=== PATIENT | female | born 1970 | race Caucasian/White ===

== ENCOUNTER 2020-05-08 14:15 | Outpatient (REF) | payer OTHER, SELFPAY ==
[2020-05-10 15:07] LABS: H Pylori Breath Test NOT DETECTED (NOT DETECTED)
== END 2020-05-08 14:16 | disposition home or self-care (01) ==
LOC: HO.LNP 14:15
PROVIDERS: PCP Internal Medicine; Visit Provider Internal Medicine Gastroenterology
DX: A04.8 Other specified bacterial intestinal infections (principal)
CPT/HCPCS: 83013; 99211

== ENCOUNTER 2020-05-25 09:36 | Day surgery (SDC) | payer OTHER, SELFPAY ==
[2020-05-25 10:04] LABS: UPreg QC Valid YES; Urine Pregnancy NEGATIVE (NEGATIVE)
[2020-05-25 10:06] VITALS: BP 128/70; PULSE 73; RESP 16; TEMP 36.3; O2SAT 100; BMI 29.2
[2020-05-25] MEDS: Lactated Ringers 1,000 ML 50 ML IVCONT (10:17)
--- NOTE | 2020-05-25 10:17 | PC.NURSE ---
MD QUINTEROS STATED OK TO CANCEL NS ORDER
--- NOTE | 2020-05-25 10:23 | P.CONAN_ITS ---
[facility] Social History Social History Smoking Status: Never smoker Use of substances other than those prescribed or required for medical reasons: No Advance Directives: No Advance Directives Information Provided: Yes Recently lost weight without trying: No Meds Allergies Allergy/AdvReac Type Severity Reaction Status Date / Time ampicillin Allergy rash, red Verified 05/08/20 14:31 spots Exam Exam Date and Time: May 25, 2020 1023 Height,Weight and Vital Signs: Height 5 ft 3 in Weight 74.843 kg Last Vital Signs Temp 97.4 F 05/25/20 10:06 Pulse 73 05/25/20 10:06 Resp 16 05/25/20 10:06 BP 128/70 05/25/20 10:06 Pulse Ox 100 05/25/20 10:06 Pertinent Lab Results Pertinent Lab Results: Laboratory Tests 05/25/20 09:50 Urine Test NEGATIVE Airway Mallampati Class: II TM Dist: >3cm Loose/Missing/Broken Teeth: No Heart: RRR Lungs: CTA Assessment and Plan Assessment Anesthesia Assessment: Anesthesia Plan Discussed and Chart Reviewed Final Anesthetic Review NPO: Yes ASA Class: I Final Preanesthetic Review: Meds/Allgs Chart Reviewed, Consent Obtained/Reviewed and Anes Risks/Benef Reviewed Patient Risk: Low Procedure Risk: Intermediate Anesthetic Plan Anesthetic Plan: MAC: Disposition: Standard PACU
--- NOTE | 2020-05-25 11:05 | P.HPSUR_ITS ---
Pre-Procedural Eval Section B Chief Complaint: Choking Relevant Family History (Specify if Yes): No Relevant Social History: None Present Medications: see Short Stay Collaborative assessment (sinus issues) Medical History: Significant History History of Previous Operations: No relevant previous surgery Allergies: Allergies Allergy/AdvReac Type Severity Reaction Status Date / Time ampicillin Allergy rash, red Verified 05/08/20 14:31 spots Review of Systems Sugical H&P ROS: Negative: Constitution, Cardiovascular, Respiratory, Neurological, Psychiatric, Hem-Onc, Allergic/Immunologic, Gastrointestinal, Genitourinary, Musculoskeletal, Integumentary, Endocrine and Eyes/Ears/Nos e/Throat Exam Surgical H&P Exam: Normal: HEENT, Normal: Heart, Normal: Lungs, Normal: Extremities, Normal: Abdomen, Normal: Skin and Normal: Neurological Plan Diagnosis/Plan: Unchanged I have reviewed the history and physical and performed a pertinent physical examination on my patient. No changes have occurred unless specified.
--- NOTE | 2020-05-25 11:06 | PM.OP ---
Brief Operative Note Date of Service: 05/25/20 Pre-op diagnosis: choking, dysphagia Post-op diagnosis: same Procedure: Procedure Description: EGD FLEXIBLE TRANSORAL UPPER GASTROINTESTINAL ENDOSCOPY UPPER ENDOSCOPY Consent: Indications for the procedure and potential complications of bleeding, perforation, reaction to medications and missed diagnosis were discussed with the patient and informed consent was obtained. Instrument: Olympus GIF H 190 J mid size upper endoscope Monitoring: Vital signs and clinical assessment, continuous EKG monitoring, Pulse oximetry, Carbon Dioxide monitoring and blood pressure monitoring were done throughout the procedure. Procedure: The patient was placed in the left lateral decubitis position and pre-procedure medications were administered and a bite block was placed. The endoscope was inserted into the mouth and advanced under direct vision to the third part of duodenum. A careful inspection was made as the upper endoscope was withdrawn including a retroflexed examination of the proximal stomach; Findings and interventions are described below. Findings: Larynx:normal Esophagus: GE junction at 36 cm, diaphragm hiatus at 36 cm, no varices or esophagitis, esophageal inlet patch noted in proximal esophagus measured about 1 cm. Balloon dilation done UES to 18 mm, and LES at 19.5 mm. bx taken to r/o eOE from distal and proximal esophagus in different jars Stomach: Patchy gastric erythema. Biopsies were obtained. Grade 3 flap valve on retroflexed examination of the cardia. The scope easily retroflexed into the esophagus itself! Duodenum: Normal bulb and descending duodenum, bx taken Intervention: Biopsies as noted above Impression/Findings: lax LES esophageal inlet patch gastritis PLAN: Symptoms may be due to reflux recommend trial of PPI and assess response, can start with higher dose and titrate down Surgeon: Kamar Mott MD Anesthesia: MAC Estimated blood loss (mL): 0 Condition: stable Disposition: PACU
[2020-05-25 11:42] VITALS: BP 119/78; PULSE 88; RESP 16; TEMP 36.4; O2SAT 99
[2020-05-25 11:57] VITALS: BP 127/72; PULSE 66; RESP 16; TEMP 36.1; O2SAT 100
[2020-05-25 12:12] VITALS: BP 125/68; PULSE 71; RESP 16; TEMP 36.1; O2SAT 99
[2020-05-25] MEDS: Throat Lozenge, Medicated LOZENGE 1 LOZENGE MUCOUS MEM (12:26)
--- NOTE | 2020-05-25 12:39 | HO.POSTANES ---
Post Anesthesia Evaluation Post Anesthesia Evaluation Vital Signs: Vital Signs Temp Pulse Resp BP Pulse Ox 05/25/20 12:12 97 F 71 16 125/68 99 05/25/20 11:57 97 F 66 16 127/72 100 05/25/20 11:42 97.6 F 88 16 119/78 99 05/25/20 10:06 97.4 F 73 16 128/70 100 Anesthesia: Monitored Mental Status: Awake Pain Control: Satisfactory Nausea/Vomiting: None Hydration: Adequate Anesthesia-Related Issues: No Anes. Related Issues
== END 2020-05-25 12:43 | disposition home or self-care (01) ==
PROVIDERS: Nurse Practitioner; PCP Internal Medicine; Visit Provider Internal Medicine Gastroenterology
PROC: 0DJ08ZZ Inspection of Upper Intestinal Tract, Via Natural or Artificial Opening Endoscopic (ICD-10-PCS; CPT 43235; principal; 2020-05-25 10:50)
DX: R13.10 Dysphagia, unspecified (principal); R09.89 Other specified symptoms and signs involving the circulatory and respiratory systems; Q39.8 Other congenital malformations of esophagus; K29.50 Unspecified chronic gastritis without bleeding; K44.9 Diaphragmatic hernia without obstruction or gangrene; Z88.0 Allergy status to penicillin
CPT/HCPCS: 43249; 43239; 81025; 88305; 88342; C1726

== ENCOUNTER → 2020-09-26 13:14 | Outpatient (BNVA) | payer OTHER, SELFPAY | PROVIDERS: PCP Internal Medicine; Visit Provider Internal Medicine Gastroenterology ==

== ENCOUNTER → 2021-04-24 15:07 | Outpatient (BNVA) | payer OTHER, SELFPAY | PROVIDERS: PCP Internal Medicine; Visit Provider Internal Medicine Gastroenterology ==